=== PATIENT | female | born 1945 | race Caucasian/White ===

== ENCOUNTER → 2016-08-03 08:54 | Day surgery (SDC) | payer MEDICARE, BC ==
[~2016-08-03 08:54] MED LIST: Acetaminophen TAB* 325 MG PO PRN; Buffered Lidocaine 1% SYRIN* 3 ML/SYR SYRINGE INTRADERM ONE; Cyclopentolate 1% OPTH.SOL* 2 ML BTL ONE; Flurbiprofen 0.03% OPTH.SOL* 2.5 ML BTL ONE; Lidocaine 1% MPF* 2 ML VIAL ONE; Lidocaine 2% EPI 1:200000 MPF* 20 ML VIAL ONE; Midazolam* 1 MG/ML 2 ML VIAL (2 MG) ONE; Neomycin/Polymy/Dex OPTH.SUSP* MAXITROL 0.1% 5 ML ONE; Phenylephrine 2.5% OPTH.SOL* 2 ML BTL ONE; Povidone Iodine 5% OPTH* 30 ML BTL ONE; Proparacaine 0.5% OPHTH.SOL* 15 ML BTL ONE; acetaZOLAMIDE TAB* 250 MG ONE
[2016-08-03 12:10] VITALS: BP 156/73
--- NOTE | 2016-08-04 10:54 | OP ---
DATE OF OPERATION: 08/03/16 - [facility] DATE OF : 43 SURGEON: Dmitri Epstein M.D. PREOPERATIVE DIAGNOSIS: Cataract, left eye. POSTOPERATIVE DIAGNOSIS: Cataract, left eye. OPERATIVE PROCEDURE: Phacoemulsification, left eye, with IOL. DESCRIPTION OF PROCEDURE: The patient was brought to the operating room after being given 1/2% Alcaine with epinephrine drops in the preoperative area. The eye was prepped and draped in the usual sterile fashion. Sterile drape and eyelid speculum were placed. Again, topical 1/2% Alcaine with epinephrine was given. A paracentesis incision was made at the 6 o'clock position with the No.75 blade. Clear cornea incision 2.2 x 2.2-mm was created at the 3 o'clock position starting at the anterior limbus using the 2.2-mm keratome. The anterior chamber was irrigated with 0.4 mL of 1% non-preservative intracameral lidocaine and filled with DisCoVisc. A capsulorrhexis was completed using the cystotome and the Utrata forceps. Hydrodissection was performed with balanced salt solution. The lens nucleus was removed with the Phacoemulsification handpiece without incident. Cortex was removed with the irrigation-aspiration handpiece. The capsular bag was re-inflated using DisCoVisc and an [id number] implant was inserted with the shooter. The irrigation-aspiration handpiece was used to remove all residual DisCoVisc. The eye was refilled with balanced salt solution and the wound checked and found to be watertight. Topical Maxitrol drops were given. [id number]/[facility] #: [id number] [facility]
== END | disposition home or self-care (01) ==
LOC: OREAST 08:54
PROVIDERS: ATTEND Specialist
DX: H25.812 Combined forms of age-related cataract, left eye (principal); H43.393 Other vitreous opacities, bilateral; M25.473 Effusion, unspecified ankle; E78.5 Hyperlipidemia, unspecified
CPT/HCPCS: J2250; V2632

== ENCOUNTER → 2016-08-10 08:16 | Day surgery (SDC) | payer MEDICARE, BC ==
[~2016-08-10 08:16] MED LIST changes: +fentaNYL* 50 MCG/ML 2 ML VIAL (100 MCG VIAL) ONE
[2016-08-10 11:18] VITALS: BP 147/77
--- NOTE | 2016-08-11 00:37 | OP ---
DATE OF OPERATION: 08/10/16 - [facility] DATE OF : 43 SURGEON: Dmitri Epstein MD PREOPERATIVE DIAGNOSIS: Cataract, right eye. POSTOPERATIVE DIAGNOSIS: Cataract, right eye. OPERATIVE PROCEDURE: Phacoemulsification, right eye with IOL. DESCRIPTION OF PROCEDURE: The patient was brought to the operating room after being given 1/2% Alcaine with epinephrine drops in the preoperative area. The eye was prepped and draped in the usual sterile fashion. Sterile drape and eyelid speculum were placed. Again, topical 1/2% Alcaine with epinephrine was given. A paracentesis incision was made at the 9 o'clock position with the No.75 blade. Clear cornea incision 2.2 x 2.2-mm was created at the 12 o'clock position starting at the anterior limbus using the 2.2-mm keratome. The anterior chamber was irrigated with 0.4 mL of 1% non-preservative intracameral lidocaine and filled with DisCoVisc. A capsulorrhexis was completed using the cystotome and the Utrata forceps. Hydrodissection was performed with balanced salt solution. The lens nucleus was removed with the Phacoemulsification handpiece without incident. Cortex was removed with the irrigation-aspiration handpiece. The capsular bag was re-inflated using DisCoVisc and an [id number] implant was inserted with the shooter. The irrigation-aspiration handpiece was used to remove all residual DisCoVisc. The eye was refilled with balanced salt solution and the wound checked and found to be watertight. Topical Maxitrol drops were given. [id number]/[facility] #: [id number] [facility]
== END | disposition home or self-care (01) ==
LOC: OREAST 08:16
PROVIDERS: ATTEND Specialist
DX: H25.811 Combined forms of age-related cataract, right eye (principal); Z79.82 Long term (current) use of aspirin; Z88.0 Allergy status to penicillin
CPT/HCPCS: J2250; J3010; V2632

== ENCOUNTER 2019-06-08 08:58 | Emergency (ER) | payer MEDICARE, OTHER ==
[2019-06-08 09:15] VITALS: BP 132/85
--- NOTE | 2019-06-08 09:31 | UC ---
Skin Complaint HPI - HPI Summary HPI Summary: CHIEF COMPLAINT: shingles, buttocks, causing pain. HPI: This is a 74 y/o female who presents requesting pain relief for right buttocks' shingles. Description of Pain: Intensity: Location: Radiation: Type: Variation: VITAL SIGNS REVIEWED. Within normal limits unless noted here. NURSES NOTE REVIEWED. "Pt c/o "shingles" on R buttocks that started last Sunday 06/04. Pt states needs pain relief. " - History of Current Complaint Chief Complaint: UCSkin Time Seen by Provider: 06/08/19 09:25 Stated Complaint: SKIN COMPLAINT Pain Intensity: 8 - Allergy/Home Medications Allergies/Adverse Reactions: Allergies Allergy/AdvReac Type Severity Reaction Status Date / Time lisinopril Allergy Coughing Verified 06/08/19 09:09 Penicillins Allergy Unknown Verified 11/16/18 08:10 Reaction Details lactose Allergy Diarrhea Uncoded 11/16/18 08:10 PMH/Surg Hx/FS Hx/Imm Hx - Additional Past Medical History Additional PMH: PAST MEDICAL HISTORY- CHRONIC and RECURRENT HEALTH PROBLEM LIST REVIEWED. Information relevant to present complaint: VISIT HISTORY REVIEWED. MEDICATIONS & ALLERGIES REVIEWED. HYPERTENSION STATUS: FAMILY HISTORY: Positive for: hypertension, cardiovascular disease, stroke, diabetes, cancer. Patient denies family history of: hypertension, cardiovascular disease, stroke, diabetes, cancer. SOCIAL HISTORY: Smoker: Home: Employment: - Surgical History Surgical History: Yes Surgery Procedure, Year, and Place: hysterectomy 03/2008, oopherectomy 2019, right anlkle - Social History Alcohol Use: None Substance Use Type: None Smoking Status (MU): Never Smoked Tobacco Have You Smoked in the Last Year: No - Immunization History Most Recent Tetanus Shot: within 8 years Physical Exam - Summary Physical Exam Summary: Appearance: The patient is well-appearing, is in no pain or distress, and is well-nourished. Eyes: Conjunctiva are clear. Pupils are equal and reactive to light and accommodation. Extra ocular muscle movement is intact. ENT: The hearing is grossly normal, the pharynx is normal, and the TMs are normal. There is no muffled or hoarse voice. No stridor. Neck: The neck is supple and there is no lymphadenopathy. Respiratory: The chest is non-tender to palpation and without crepitus. The lungs are clear, there are normal breath sounds, and there is no respiratory distress. No wheezes, rales or rhonchi. Cardiovascular: Heart sounds reveal a regular rate and rhythm. There are no clicks, rubs or murmurs. There are no carotid bruits or thrills. Circulation is grossly intact. Abdomen: The abdomen is soft and nontender. There is no organomegaly. Bowel sounds are present and within normal limits. No point tenderness at McBurneys point. No CVA tenderness. Musculoskeletal: Strength is intact. The patient moves all extremities. Neurological: The patient is alert. Motor and sensory are examination grossly intact. Speech is normal. Psychological: The patient displays age appropriate behavior, and is conversant. GCS=15. Skin: Negative for rashes. Triage Information Reviewed: Yes Vital Signs: Initial Vital Signs Temp 98.6 F 06/08/19 09:10 Pulse 99 06/08/19 09:10 Resp 18 06/08/19 09:10 BP 132/85 06/08/19 09:10 Pulse Ox 97 06/08/19 09:10 Vital Signs Reviewed: Yes Discharge ED - Sign-Out/Discharge Documenting (check all that apply): Patient Departure All imaging exams completed and their final reports reviewed: No Studies - Discharge Plan Condition: Stable Disposition: HOME Referrals: Tara Aguilar MD [Primary Care Provider] - Additional Instructions: WE DISCUSSED: PLEASE SEEK CARE AT THE EMERGENCY DEPARTMENT IF SYMPTOMS WORSEN OR IF NEW SYMPTOMS DEVELOP. FOLLOW UP WITH YOUR PRIMARY CARE PHYSICIAN IF CONDITION CONTINUES BEYOND 3 DAYS WITHOUT IMPROVEMENT. YOUR DIAGNOSIS IS: YOUR PRESCRIPTION RECOMMENDATION IS: OTHER INSTRUCTIONS: Hypertension Discharge Instructions: Your blood pressure reading today was , indicating HYPERTENSION. Follow-up with your primary care provider within 4 weeks for blood pressure check and appropriate recommendations and treatment, as needed. FOR PAIN AND/OR SLEEP: For pain: Ibuprofen (Motrin and other brand names) 400-600mg PLUS acetaminophen (Tylenol and other brand names) 500mg - 1000mg every 8 hours. - Billing Disposition and Condition Condition: STABLE Disposition: Home
--- NOTE | 2019-06-08 09:45 | UC ---
Skin Complaint HPI - HPI Summary HPI Summary: 74 y/o female presents to the urgent care c/o painful rash w/ vesicle in her R buttocks since last Monday06/04/2019. Pt states rash stated w/tingling sensation and itchiness, then pain. She thinks it is shingles since her mother used to have it. She also had Hx of chicken pox as a child. Pain is 8/10 constant. She has taken Aleve PO 1 tab to alleviate symptoms. Pt denies fever , LIMA, dizziness, drainage, SOB, chest pain, abdominal pain, N/V/d. - History of Current Complaint Chief Complaint: UCSkin Time Seen by Provider: 06/08/19 09:25 Stated Complaint: SKIN COMPLAINT Hx Obtained From: Patient Onset/Duration: Gradual Onset, Lasting Days - 2 days, Still Present, Worse Since - today Skin Exposure Onset/Duration: Days Ago - 2 days Timing: Constant Onset Severity: Mild Current Severity: Moderate Pain Intensity: 8 Pain Scale Used: 0-10 Numeric Location: Discrete - Rt buttocks vesicular rash Character: Pruritus, Pain Aggravating Factor(s): Touch Alleviating Factor(s): OTC Meds, Cold Compresses Associated Signs & Symptoms: Positive: Rash - vesicular rash in the R buttocks, Tenderness. Negative: Nausea, Vomiting, Numbness, Fever, Chills, Cough, Hoarseness, Drainage, Bruising, Red Streaks, Joint Swelling Related History: Other: - chikcen pox as a child - Allergy/Home Medications Allergies/Adverse Reactions: Allergies Allergy/AdvReac Type Severity Reaction Status Date / Time lisinopril Allergy Coughing Verified 06/08/19 09:09 Penicillins Allergy Unknown Verified 11/16/18 08:10 Reaction Details lactose Allergy Diarrhea Uncoded 11/16/18 08:10 PMH/Surg Hx/FS Hx/Imm Hx Previously Healthy: Yes Cardiovascular History: Hypertension - Surgical History Surgical History: Yes Surgery Procedure, Year, and Place: hysterectomy 03/2008, oopherectomy 2019, right anlkle - Family History Known Family History: Positive: Hypertension - Social History Occupation: Retired Lives: With Family Alcohol Use: None Substance Use Type: None Smoking Status (MU): Never Smoked Tobacco Have You Smoked in the Last Year: No - Immunization History Most Recent Tetanus Shot: within 8 years Review of Systems All Other Systems Reviewed And Are Negative: Yes Constitutional: Positive: Negative Skin: Positive: Rash - vesicular painful rash in the Rt buttocks Eyes: Positive: Negative ENT: Positive: Negative Respiratory: Positive: Negative Cardiovascular: Positive: Negative Gastrointestinal: Positive: Negative Genitourinary: Positive: Negative Motor: Positive: Negative Neurovascular: Positive: Negative Musculoskeletal: Positive: Negative Neurological: Positive: Negative Psychological: Positive: Negative Is Patient Immunocompromised?: No Physical Exam - Summary Physical Exam Summary: Vital Signs Reviewed: Yes General: well appearing, well nourished old female in no acute apparent pain distress, sitting comfortably on examining table Eye Exam: Normal Eyes: Positive: Conjunctiva Clear - PERRLA< EOMI, fundi grossly normal ENT: Positive: Normal ENT inspection, Hearing grossly normal, Pharynx normal, TMs normal Neck: Positive: Supple, Nontender, No Lymphadenopathy Respiratory: Positive: Chest non-tender, Lungs clear, Normal breath sounds, No respiratory distress Cardiovascular: Positive: RRR, No Murmur, Pulses Normal, Brisk Capillary Refill Abdomen Description: Positive: Nontender, No Organomegaly, Soft. Negative: CVA Tenderness (R), CVA Tenderness (L) Bowel Sounds: Positive: Present Musculoskeletal: Positive: Strength Intact, ROM Intact, No Edema Neurological: Positive: Alert, Muscle Tone Normal Psychological Exam: Normal Skin: Positive:Positive erythematous maculopapular eruption, some papules with moderate clear vesicles. located in the mid side of RT gluteus in a dermatomal distribution , tenderness to palpation, no swelling observed. Triage Information Reviewed: Yes Vital Signs: Initial Vital Signs Temp 98.6 F 06/08/19 09:10 Pulse 99 06/08/19 09:10 Resp 18 06/08/19 09:10 BP 132/85 06/08/19 09:10 Pulse Ox 97 06/08/19 09:10 Course/Dx - Course Course Of Treatment: 74 y/o female presents to the urgent care c/o painful rash w/ vesicle in her R buttocks since last Monday06/04/2019. Pt states rash stated w/tingling sensation and itchiness, then pain. She thinks it is shingles since her mother used to have it. She also had Hx of chicken pox as a child. Pain is 8/10 constant. She has taken Aleve PO 1 tab to alleviate symptoms. Pt denies fever , LIMA, dizziness, drainage, SOB, chest pain, abdominal pain, N/V/d. Hx obtained. Pt with Herpes Zoster on the mid RT gluteus on examination. Pt Rx valtrex. calamine topical lotion. Pt decline Gabapentin PO for pain. Pt advised to alternate Tylenol PO and Aleve PO to manage pain. Pt advised if not improvement or worsening of symptoms to return to the clinic or f/u with PCP for further treatment. Advised to avoid contact w/ women, babies or elderly. PT understood and agreed with plan of care. - Differential Diagnoses - Skin Complaint Differential Diagnoses: Abscess, Cellulitis, Contact Dermatitis, Local Allergic Reaction, Poison Danni, Poison Troy, Scabies, Varicella Zoster - Diagnoses Provider Diagnosis: Shingles rash Discharge ED - Sign-Out/Discharge Documenting (check all that apply): Patient Departure - d/C home All imaging exams completed and their final reports reviewed: No Studies - Discharge Plan Condition: Stable Disposition: HOME Prescriptions: Calamine/Pramoxine LOTION* [Caladryl LOTION*] 1 applic .SEE ORDER Q8HR #1 btl ValACYclovir (*) [Valtrex 1 GM(*)] 1 gm PO Q8HR #21 tab Patient Education Materials: Shingles (ED) Referrals: Tiffany Dwyer MD [Medical Doctor] - 3 Days Tara Aguilar MD [Primary Care Provider] - 3 Days Additional Instructions: 1- Please take Valtrex PO as directed to allevaite symptoms. 2-Please apply Calamide lotion as directed to alleviate rash 3-Take Tylenol PO or Aleve PO after measl to alleviate pain. 3-Take Benadryl PO qhs prns to alleviate itchiness. 4-If symptoms do not improve or worsen in 3 days please f/u with your PCP or A P [facility] Dr Dwyer further evaluation and treatment. - Billing Disposition and Condition Condition: STABLE Disposition: Home
== END 2019-06-08 10:30 | disposition home or self-care (01) ==
LOC: UCEAST 08:58
DX: B02.9 Zoster without complications (principal); I10 Essential (primary) hypertension; Z88.0 Allergy status to penicillin; Z91.011 Allergy to milk products; Z88.8 Allergy status to other drugs, medicaments and biological substances
CPT/HCPCS: 99212; G0463